=== PATIENT | male | born 1970 | race African-American/Black ===

== ENCOUNTER 2021-10-25 14:18 | Emergency (ER) | payer BC, OTHER ==
[2021-10-25 14:23] VITALS: TEMP 98.5; BMI 30.7
[2021-10-25 15:17] LABS: BASO % 0.3 % (0-2.0); EOS % 1.3 % (0-4.5); HEMATOCRIT 42.3 % (35.4-49); HEMOGLOBIN 14.2 GM/dL (11.7-16.9); LYMPH % 13.9 % (8-40); MCH 29.9 pg (25.7-33.7); MCHC 33.6 g/dl (32.0-35.9); MEAN CELL VOLUME 88.9 fl (80-96); MEAN PLT VOLUME 7.1 fl (7.5-11.1); MONO % 6.9 % (3.8-10.2); NEUT % 77.6 % (42.8-82.8); PLATELET COUNT 255 10^3/uL (134-434); RBC 4.75 M/mm3 (4.00-5.60); RDW 14.1 % (11.9-15.9); WHITE BLOOD COUNT 8.9 K/mm3 (4.0-10.0)
[2021-10-25 15:45] LABS: CALCIUM 8.9 mg/dL (8.5-10.1)
[2021-10-25 15:46] LABS: ALBUMIN 3.8 g/dl (3.4-5.0); BLOOD UREA NITROGEN 11.6 mg/dL (7-18)
[2021-10-25 15:49] LABS: CREATININE 1.3 mg/dL (0.55-1.3)
[2021-10-25 15:50] LABS: BILIRUBIN,TOTAL 0.4 mg/dL (0.2-1)
[2021-10-25 15:51] LABS: TOT PROT 6.9 g/dl (6.4-8.2)
[2021-10-25] MEDS ORDERED: IBUPROFEN 400 MG TABLET (FP) PO ONE (16:33)
[2021-10-25 17:03] VITALS: BP 131/56; PULSE 65; RESP 16
== END 2021-10-25 18:03 | disposition home or self-care (01) ==
LOC: JER 14:18
DX: R07.9 Chest pain, unspecified (principal)
CPT/HCPCS: 36415; 71045-TC-FY; 80053; 84484; 85025; 85379; 93005; 93010; 99285-25; C9803-CS; U0003; U0005

== ENCOUNTER 2022-05-09 09:34 | Emergency (ER) | payer BC ==
[2022-05-09 09:38] VITALS: BP 149/92; PULSE 75; RESP 18; TEMP 98.5; BMI 31.6
[2022-05-09 13:03] LABS: THROAT:GRP A STREP NOT DETECTED (NOTDETECTED)
== END 2022-05-09 13:18 | disposition home or self-care (01) ==
LOC: JER 09:34
DX: R07.0 Pain in throat (principal)
CPT/HCPCS: 0241U-QW; 70360-TC-FY; 87651; 99284-25

== ENCOUNTER 2023-09-27 19:16 | Observation (INO) | payer BC ==
[2023-09-27] MEDS ORDERED: ACETAMINOPHEN INJECTION 100 ML IVPB ONE (20:57)
[2023-09-27] MEDS: ACETAMINOPHEN 1000 MG/100 ML BAG IVPB ONE (21:32)
[2023-09-27 21:45] LABS: BASO % 0.5 % (0-2.0); EOS % 0.4 % (0-4.5); HEMATOCRIT 42.8 % (35.4-49); LYMPH % 11.2 % (8-40); MCH 29.6 pg (25.7-33.7); MCHC 32.8 g/dl (32.0-35.9); MEAN CELL VOLUME 90.3 fl (80-96); MEAN PLT VOLUME 7.8 fl (7.5-11.1); NEUT % 79.9 % (42.8-82.8); PLATELET COUNT 253 10^3/uL (134-434); RBC 4.74 M/mm3 (4.00-5.60); RDW 14.3 % (11.9-15.9); WHITE BLOOD COUNT 12.6 K/mm3 (4.0-10.0)
[2023-09-27 21:53] LABS: INR 1.11 (0.83-1.09); PROTHROMBIN TIME (PATIENT) 12.7 SEC (9.7-13.0)
[2023-09-27 22:00] LABS: CALCIUM 9.5 mg/dL (8.5-10.1)
[2023-09-27 22:01] LABS: ALBUMIN 3.8 g/dl (3.4-5.0); BLOOD UREA NITROGEN 10.1 mg/dL (7-18)
[2023-09-27 22:06] LABS: BILIRUBIN,TOTAL 0.7 mg/dL (0.2-1); CREATININE 1.2 mg/dL (0.55-1.3); TOT PROT 7.3 g/dl (6.4-8.2)
[2023-09-28] MEDS ORDERED: PIPERACILLIN/TAZOB 4.5 GM 4.5 GM/100 ML BAG IVPB ONE (01:48)
[2023-09-28] MEDS: PIPERACILLIN/TAZOB 4.5 GM 4.5 GM in DEXTROSE 5%-WATER 100 ML IVPB ONE (02:05)
[2023-09-28] MEDS: LACTATED RINGERS SOLUTION 1000 ML INFUS.BAG IV ONE (02:05)
[2023-09-28 04:21] VITALS: BMI 30.5
[2023-09-28 08:26] LABS: BASO % 0.5 % (0-2.0); EOS % 0.6 % (0-4.5); HEMATOCRIT 39.2 % (35.4-49); HEMOGLOBIN 13.4 GM/dL (11.7-16.9); LYMPH % 15.4 % (8-40); MCH 30.5 pg (25.7-33.7); MCHC 34.2 g/dl (32.0-35.9); MEAN CELL VOLUME 89.1 fl (80-96); MEAN PLT VOLUME 7.7 fl (7.5-11.1); MONO % 10.9 % (3.8-10.2); NEUT % 72.6 % (42.8-82.8); PLATELET COUNT 248 10^3/uL (134-434); RDW 14.5 % (11.9-15.9); WHITE BLOOD COUNT 10.3 K/mm3 (4.0-10.0)
[2023-09-28 08:43] LABS: POTASSIUM 3.9 mmol/L (3.5-5.1)
[2023-09-28 08:46] LABS: ALBUMIN 3.5 g/dl (3.4-5.0); BLOOD UREA NITROGEN 9.3 mg/dL (7-18); MAGNESIUM 1.8 mg/dL (1.8-2.4)
[2023-09-28 08:49] LABS: CREATININE 1.1 mg/dL (0.55-1.3); PHOSPHOROUS 2.8 mg/dL (2.5-4.9)
[2023-09-28 08:52] LABS: TOT PROT 6.6 g/dl (6.4-8.2)
[2023-09-28] MEDS: SODIUM CHLORIDE 1,000 ML IV SCH (11:11)
[2023-09-28] MEDS: ACETAMINOPHEN 1000 MG/100 ML BAG IVPB PRN (11:14)
[2023-09-28] MEDS: PIPERACILLIN/TAZOB 3.375 GM 3.375 GM in DEXTROSE 5%-WATER - 50 ML IVPB SCH ×2 (11:17→18:12)
[2023-09-28] MEDS: PANTOPRAZOLE 40 MG TABLET PO SCH (11:18)
[2023-09-28] MEDS: ENOXAPARIN NA (PORCINE) 40 MG/0.4 ML DISP.SYRIN SQ SCH (11:18)
[2023-09-28] MEDS ORDERED: ACETAMINOPHEN 1000 MG/100 ML BAG IVPB PRN (19:02)
[2023-09-28] MEDS: MELATONIN 5 MG TABLETS PO ONE (23:55)
[2023-09-29] MEDS: PIPERACILLIN/TAZOB 3.375 GM 3.375 GM in DEXTROSE 5%-WATER - 50 ML IVPB SCH (08:41)
[2023-09-29 09:24] LABS: BASO % 0.6 % (0-2.0); HEMATOCRIT 40.2 % (35.4-49); HEMOGLOBIN 13.4 GM/dL (11.7-16.9); LYMPH % 22.4 % (8-40); MCH 29.7 pg (25.7-33.7); MCHC 33.4 g/dl (32.0-35.9); MEAN CELL VOLUME 89.1 fl (80-96); MEAN PLT VOLUME 7.7 fl (7.5-11.1); MONO % 11.9 % (3.8-10.2); NEUT % 62.1 % (42.8-82.8); PLATELET COUNT 270 10^3/uL (134-434); RBC 4.51 M/mm3 (4.00-5.60); WHITE BLOOD COUNT 5.8 K/mm3 (4.0-10.0)
[2023-09-29 09:43] LABS: POTASSIUM 3.9 mmol/L (3.5-5.1)
[2023-09-29 09:49] LABS: BLOOD UREA NITROGEN 7.3 mg/dL (7-18); CALCIUM 9.2 mg/dL (8.5-10.1)
[2023-09-29 09:51] LABS: CREATININE 1.1 mg/dL (0.55-1.3)
[2023-09-30 07:32] LABS: BASO % 0.9 % (0-2.0); EOS % 2.6 % (0-4.5); HEMATOCRIT 39.9 % (35.4-49); HEMOGLOBIN 13.3 GM/dL (11.7-16.9); MCH 30.1 pg (25.7-33.7); MCHC 33.4 g/dl (32.0-35.9); MEAN CELL VOLUME 90.2 fl (80-96); MEAN PLT VOLUME 7.7 fl (7.5-11.1); MONO % 13.4 % (3.8-10.2); NEUT % 53.1 % (42.8-82.8); PLATELET COUNT 280 10^3/uL (134-434); RBC 4.43 M/mm3 (4.00-5.60); RDW 13.5 % (11.9-15.9); WHITE BLOOD COUNT 5.6 K/mm3 (4.0-10.0)
[2023-09-30 07:44] LABS: POTASSIUM 4.1 mmol/L (3.5-5.1)
[2023-09-30 07:46] LABS: CALCIUM 9.1 mg/dL (8.5-10.1)
[2023-09-30 07:47] LABS: BLOOD UREA NITROGEN 8.7 mg/dL (7-18)
[2023-09-30 07:51] LABS: CREATININE 1.2 mg/dL (0.55-1.3)
[2023-09-30 10:47] VITALS: BP 141/83; PULSE 64; RESP 18; TEMP 98
== END 2023-09-30 11:10 | disposition home or self-care (01) ==
LOC: JER 19:16 → JERBED 09-28 00:50 → J7W 09-28 04:06
PROVIDERS: ADMIT Internal Medicine; ATTEND Nurse Practitioner
PROC: 3E033NZ Introduction of Analgesics, Hypnotics, Sedatives into Peripheral Vein, Percutaneous Approach (ICD-10-PCS; principal; 2023-09-28)
PROC: 3E023GC Introduction of Other Therapeutic Substance into Muscle, Percutaneous Approach (ICD-10-PCS; 2023-09-28)
PROC: 3E0337Z Introduction of Electrolytic and Water Balance Substance into Peripheral Vein, Percutaneous Approach (ICD-10-PCS; 2023-09-28)
PROC: 3E03329 Introduction of Other Anti-infective into Peripheral Vein, Percutaneous Approach (ICD-10-PCS; 2023-09-28)
DX: K57.20 Diverticulitis of large intestine with perforation and abscess without bleeding (principal); K21.9 Gastro-esophageal reflux disease without esophagitis; K27.9 Peptic ulcer, site unspecified, unspecified as acute or chronic, without hemorrhage or perforation; K29.70 Gastritis, unspecified, without bleeding; K22.70 Barrett's esophagus without dysplasia; F12.90 Cannabis use, unspecified, uncomplicated
CPT/HCPCS: 36415; 74177-TC; 80048; 80053; 83735; 84100; 85025; 85610; 85730; 86850; 86900; 86901; 93005; 93010; 99285-25; G0378; J0131